=== PATIENT | male | born 1965 | race Hispanic/Latino ===

== ENCOUNTER 2023-11-24 21:44 | Emergency (ER) | payer BC ==
[~2023-11-24] VITALS: Ht 162.6 cm; Wt 59.0 kg
[2023-11-24] MEDS ORDERED: NITROGLYCERIN 0.4 MG SL TAB SL PRN (22:30)
[2023-11-24] MEDS ORDERED: ASPIRIN 81MG CHEW TAB PO ONE (22:30)
[2023-11-24 22:35] LABS: INR <= 0.93 (0.85-1.15); PROTHROMBIN TIME 10.7 SEC (9.6-11.6)
[2023-11-24 22:37] LABS: PARTIAL THROMBOPLASTIN TIME 27.1 SEC (26.3-35.5)
[2023-11-24] MEDS ORDERED: ACETAMINOPHEN 325 MG TAB PO ONE (23:00)
[2023-11-24 23:06] LABS: APPEARANCE,URINE CLEAR (CLEAR); BILIRUBIN,URINE NEGATIVE (NEGATIVE); COLOR,URINE YELLOW (YELLOW); GLUCOSE, URINE (UA) NEGATIVE (NEGATIVE); KETONES,URINE NEGATIVE (NEGATIVE); LEUKOCYTE ESTERASE ,URINE NEGATIVE Leu/uL (NEGATIVE); NITRATE,URINE NEGATIVE (NEGATIVE); OCCULT BLOOD,URINE NEGATIVE (NEGATIVE); PH,URINE 6.5 (5.0-8.0); PROTEIN,URINE 20 mg/dL (NEGATIVE)
[2023-11-24 23:10] LABS: ADD UA MICROSCOPIC YES
[2023-11-24 23:34] LABS: BASOPHILS # (AUTO) 0.02 K/uL (0.00-0.20); BASOPHILS % (AUTO) 0.3 % (0.0-5.0); EOSINOPHILS # (AUTO) 0.08 K/uL (0.00-0.70); EOSINOPHILS % (AUTO) 1.4 % (0.0-8.0); HEMATOCRIT 38.5 % (42-54); IMMATURE GRANULOCYTE ABSOLUTE 0.03 K/uL (0-1); LYMPHOCYTES # (AUTO) 1.3 K/uL (1.0-4.8); LYMPHOCYTES % (AUTO) 22.8 % (21.0-51.0); MEAN CORPUSCULAR HEMOGLOBIN 29.7 pg (27.0-33.0); MEAN CORPUSCULAR VOLUME 90.2 fL (79-99); MONOCYTES # (AUTO) 0.4 K/uL (0.1-1.0); MONOCYTES % (AUTO) 6.3 % (3.0-13.0); NEUTROPHILS % (AUTO) 68.7 % (40.0-77.0); PLATELET COUNT (AUTO) 194 K/uL (130-400); RED BLOOD CELL COUNT(AUTO) 4.27 MIL/uL (4.50-6.20); RED CELL DISTRIBUTION WIDTH 14.5 % (11.0-15.5); WHITE BLOOD COUNT (AUTO) 5.8 K/uL (4.8-10.8)
[2023-11-24 23:37] LABS: D-DIMER 432 ng/mL (0-500)
[2023-11-24 23:38] LABS: CREATININE 1.3 mg/dL (0.5-1.5); POTASSIUM 3.5 mmol/L (3.5-5.1)
[2023-11-24 23:42] LABS: ALBUMIN 3.2 g/dL (3.5-5.0); BILIRUBIN,TOTAL 0.4 mg/dL (0.2-1.0)
[2023-11-24 23:47] LABS: MUCUS,URINE RARE LPF (None Seen); SQUAMOUS EPITHELIAL CELL,UR RARE /HPF (0-2)
[2023-11-24 23:54] LABS: B-TYPE NATRIURETIC PEPTIDE 36 pg/mL (0-100)
[2023-11-25 00:45] VITALS: BP 120/70; PULSE 59; RESP 17; O2SAT 97
[2023-11-25] MEDS ORDERED: IBUP-1493 PO (01:00)
[2023-11-25] MEDS ORDERED: CYCL-309 PO (01:00)
[2023-11-25] MEDS ORDERED: GABA300C PO (01:00)
== END 2023-11-25 01:34 | disposition home or self-care (01) ==
LOC: EDH 21:44
DX: M54.12 Radiculopathy, cervical region (principal); M25.512 Pain in left shoulder; M79.632 Pain in left forearm; I10 Essential (primary) hypertension; Z98.890 Other specified postprocedural states; Z88.2 Allergy status to sulfonamides
CPT/HCPCS: 36415; 71045; 80053; 81001; 83880; 84484; 85025; 85378; 85610; 85730; 93005